=== PATIENT | female | born 2000 ===

== ENCOUNTER 2025-03-02 15:54 | Outpatient (AMB) | payer OTHER, SELFPAY ==
--- OUTSIDE RECORDS SUMMARY | 2025-03-02 15:57 | XMS_ITS | Clinical Summary ---
Author Organization [employer] ([facility] [employer] [facility] [employer]) Address [address] [place] [address] Care Team Providers Care Lead Person Name Role Phone Provider, Out Of Town Primary Care Provider U edwardailnatalie Source Comments PROHIBITION ON REDISCLOSURE: In the event these records contain information protected by 42 CFR Part 2, (i.e., would identify the patient as a substance abuser and was obtained by a federally assisted substance abuse program to diagnose, refer for treatment, or treat the patient for substance abuse), please be advised of the following: This information has been disclosed to you from records protected by Federal confidentiality rules (42 CFR part 2). The Federal rules prohibit you from making any further disclosure of this information unless further disclosure is expressly permitted by the written consent of the person to whom it pertains or as otherwise permitted by 42 CFR part 2. A general authorization for the release of medical or other information is NOT sufficient for this purpose. The Federal rules restrict any use of this information to criminally investigate or prosecute any alcohol or drug abuse patient. [facility] [employer]) Allergies Active Allergy Reactions Criticality Noted Date Comments Shellfish Derived 10/14/2023 Medications * PLEASE NOTE: Medications may not be up to date as of this document. Always verify current medications with the patient. No known medications Active Problems Problem Noted Date Diagnosed Date Chest pain 09/24/2023 Social History Tobacco Use Types Packs/Day Years Used Date Smoking Tobacco: Never Assessed Comments No Sex and Gender Information Value Date Recorded Sex Assigned at Not on file Legal Sex Female 4:13 PM EST Gender Identity Not on file Sexual Orientation Not on file Last Filed Vital Signs Vital Sign Reading Time Taken Comments Blood Pressure 117/79 10/14/2023 1:59 PM EDT Pulse 85 10/14/2023 1:59 PM EDT Temperature - - Respiratory Rate - - Oxygen Saturation - - Inhaled Oxygen Concentration - - Weight 74.4 kg (164 lb) 10/14/2023 1:59 PM EDT Height - - Body Mass Index - - Plan of Treatment Health Maintenance Due Date Last Done Comments CHLAMYDIA SCREENING 2000 DEPRESSION SCREENING & SURVEILLANCE 2012 HEPATITIS C SCREENING 2018 CERVICAL CANCER SCREENING & SURVEILLANCE 2021 COVID-19 VACCINE (2023-2 5 season) 2024 INFLUENZA VACCINE 02/24/2025 06/01/2020, , 09/20/2018, Additional history exists Insurance [employer] Care Teams Lead Person Relationship Specialty Start Date End Date [facility] [id number] PCP - General Group provider 09/24/23 Additional Source Comments PROHIBITION ON REDISCLOSURE: In the event these records contain information protected by 42 CFR Part 2, (i.e., would identify the patient as a substance abuser and was obtained by a federally assisted substance abuse program to diagnose, refer for treatment, or treat the patient for substance abuse), please be advised of the following: This information has been disclosed to you from records protected by Federal confidentiality rules (42 CFR part 2). The Federal rules prohibit you from making any further disclosure of this information unless further disclosure is expressly permitted by the written consent of the person to whom it pertains or as otherwise permitted by 42 CFR part 2. A general authorization for the release of medical or other information is NOT sufficient for this purpose. The Federal rules restrict any use of this information to criminally investigate or prosecute any alcohol or drug abuse patient. [facility]
--- OUTSIDE RECORDS SUMMARY | 2025-03-02 15:57 | XMS_ITS | Clinical Summary ---
Author Organization [facility] Address [address] [place] [address] Care Team Providers Care Stevedoring Supervisor Name Role Phone Jose Finney Primary Care Provider [phone] Source Comments In the event that these patient records contain information protected by 42 CFRpart 2 (i.e., would identify the patient as a substance abuser and was obtainedby a federally assisted substance abuse program to diagnose, refer fortreatment or treat the patient for substance abuse), please be advised of thefollowing: This information has been disclosed to you from records protected by Federalconfidentiality rules (42 CFR part 2). The Federal rules prohibit you frommaking any further disclosure of this information unless further disclosure isexpressly permitted by the written consent of the person to whom it pertains oras otherwise permitted by 42 CFR part 2. A general authorization for therelea se of medical or other information is NOT sufficient for this purpose.The Federal rules restrict any use of the information to criminally investigateor prosecute any alcohol or drug abuse patient. expressly permitted by the written consent of the person to whom it pertains or as otherwise permitted by 42 CFR part 2. A general authorization for the release of medical or other information is NOT sufficient for this purpose. The Federal rules restrict any use of the information to criminally investigate or prosecute any alcohol or drug abuse patient.[facility] Allergies Active Allergy Reactions Criticality Noted Date Comments Shellfish Containing Products 2022 Medications oxyCODONE (ROXICODONE) 5 MG immediate release tablet 08/25/2023 Acti ve ibuprofen (MOTRIN) 800 MG tablet Take by mouth. 04/11/2023 Active Social History Tobacco Use Types Packs/Day Years Used Date Smoking Tobacco: Never Tobacco Cessation:Counseling Given: Not Answered Alcohol Use Standard Drinks/Week Comments Never 0 (1 standard drink = 0.6 oz pur e alcohol) Substance Use Answer Date Recorded In the past year, how often have you used prescription drugs for non-medical reasons? Not on file 06/01/2024 In the past year, how often have you used illega l drugs? Not on file 06/01/2024 In the past year, have you u sed any substance for non-medical reasons? No 06/01/2024 Comments No Sex and Gender Information Value Date Recorded Sex Assigned at Female 07/01/2023 4:49 AM EST Legal Sex Female 6:03 PM EDT Gender Identity Female 07/01/2023 4:49 AM EST Sexual Orientation Straight 07/01/2023 4: 49 AM EST Last Filed Vital Signs Vital Sign Reading Time Taken Comments Blood Pressure 102/62 05/29/2024 11:35 AM EST Pulse 68 05/29/2024 11:35 AM EST Temperature 36.7 C (98 F) 05/29/2024 10:55 AM EST Respiratory Rate 18 05/29/2024 11:35 AM EST Oxygen Saturation 95% 05/29/2024 11:35 AM EST Inhaled Oxygen Concentration - - Weight 73.9 kg (163 lb) 05/29/2024 10:55 AM EST Height 154.9 cm (5' 1 ) 09/30/2023 1:40 PM EST Body Mass Index 30.8 09/30/2023 1:40 PM EST Plan of Treatment Health Maintenance Due Date Last Done Comments Chlamydia Screening 11/03/2015 Gonorrhea Screening 11/03/2015 Pap Smear with Reflex HPV (21-29) 2021 COVID-19 Vaccine ( season) 2024 04/11/2021, 03/20/2021 Influenza Vaccine (#1) 2025 , 05/28/2023, 06/01/2020, Additional history exists DTaP/Tdap/Td Vaccines (4 - Td or Tdap) 01/13/2029 01/13/2019, 04/12/2012, 03/19/2001 Pneumococcal Vaccine 0-49 Aged Out 03/19/2001 No longer eligible based on patient's age to complete this topic HPV Vaccines Completed 02/16/2020, 09/25, 08/17/2019, Additional history exists Hepatitis C Screen Completed 04/15/2024 Insurance [facility] Care Teams Stevedoring Supervisor Relationship Specialty Start Date End Date Jose Finney [address] [place] [address] PCP - General 04/02/23
--- OUTSIDE RECORDS SUMMARY | 2025-03-02 15:57 | XMS_ITS | Encounter Summary ---
Author Organization [facility] Address [address] [place] [address] Care Team Providers Care Ring Sorter Name Role Phone Joshua Lauren MD Primary Care Provider + None Primary Care Provider Unavailabl e Kim Harmon MD Primary Care Provider Jey Daniel MD Primary Care Prov ider Gabi Funez MD Primary Care Provider Encounter Details Date Type Department Care Team (Late st Contact Info) Description 10/28/2001 Orders Only On File [address] [place] [address] Social History Tobacco Use Types Packs/Day Years Used Date Smoking Tobacco: Never Assessed Comments Unknown Sex and Gender Information Value Date Recorded Sex Assigned at Female 09/06/2020 5:00 PM EST Legal Sex Female 11:27 AM EST Gender Identity Female 09/06/2020 5:00 PM EST Sexual Orientation Straight 12/03/2020 12 :06 PM EDT documented as of this encounter Procedure Notes * PROVIDER, ON-FILE - 10/28/2001 2:21 PM ESTAssociated Order(s): HEMATOCRIT Patient: ROQUE HERRERA [id number] [facility] ([facility]) Hematology-Historical Backload: Final 10/28/2001 14:21 Acc# [id number] Acct# HEMATOCRIT Reference HEMATOCRIT 36.0 % [32.0-42.0] SPUN documented in this encounter Plan of Treatment Not on file documented as of this encounter Procedures Procedure Name Priority Date/Time Associated Diagnosis Comments HEMATOCRIT 10/28/2001 2:21 PM EST documented in this encounter Results * HEMATOCRIT (10/28/2001 2:21 PM EST) Narrative Transcriptions PROVIDER, ON-FILE - 10/28/2001 2:21 PM EST Patient: FROY KYMBERLY JAHAIRAGERARDO [id number] [facility] ([facility]) Hematology-Historical Backload: Final 10/28/2001 14:21Acc# [id number] Acct# HEMATOCRIT Reference HEMATOCRIT 36.0 % [32.0-42.0] SPUN us On-File Provider LAB BLOOD ORDERABLES Final Resu lt documented in this encounter Visit Diagnoses Not on filedocumented in this encounter Additional Health Concerns Infection Onset Date Last Indicated Resolved Time Suspected COVID-19 08/07/2022 08/07/2022 3 9:36 PM EST Suspected COVID-19 08/19/2022 08/19/2022 3 11:22 AM EST COVID-19 08/19/2022 08/19/2022 09/08/2022 1:32 AM EST documented as of this encounter Care Teams Ring Sorter Relationship Specialty [place] [address] [facility] [address] [place] [address] PCP - General 06/28/12 05/09/22 None PCP - General 08/07/22 10/19/22 Kim Harmon MD PCP - General Pediatrics 10/20/22 07/23/23 Jey Daniel MD [address] [place] [id number] PCP - General Pediatrics 07/24/23 04/20/24 Gabi Funez MD [address] [place] [id number] PCP - General Internal Medicine 04/21/24 documented as of this encounter
--- NOTE | 2025-03-02 15:59 | AM.OFFWIN_ITS ---
Intake Vital Signs 03/02/25 16:03 Height 5 ft 1 in Weight 162 lb BMI 30.6 BP 94/54 L Blood Pressure Location Lt brachial Position Sitting Pulse 75 Pulse Source Pulse Oximeter Temp 97.9 F Temp Source Oral Pulse Oximetry (%) 97 Oxygen Delivery Method Room Air Intake Visit Reasons: Bilateral Eye/ear pain Intake Note: pt presents with bilateral eye pain, bilateral ear pain, LT eye blurry vision headaches, dizziness this morning when waking up this morning Allergies No Known Allergies Allergy (Verified 03/02/25 16:03) Do you need a note to return to daycare/school/sports/work: Yes HPI HPI Comments History of Present Illness Details 24 y/o Female patient who presents to [facility] walk in clinic with c/o Dry/itching eyes, Headaches, and B/L Ear Pressure and pain. She does have h/o Seasonal allergies associated with dry red eyes. She has tried in the past Allergra and Zrytec with minimal relief. Recently seen at [facility] in [place] (2 weeks ago) and was told to f/u with ENT and Securities Underwriter. She is having trouble securing PCP. She does suffer from Migraine headaches and uses Topiramate daily. She is new to [place] - she is in and constantly moving state to state. [facility] Medical History (Updated 03/02/25 @ 16:59 by Angelica Milton NP) Dry eyes, bilateral Allergic rhinitis Review of Systems Const All systems reviewed & are unremarkable except as noted in HPI and below Physical Exam Vital Signs: Last Vital Signs Temp 97.9 F 03/02/25 16:03 Pulse 75 03/02/25 16:03 BP 94/54 L 03/02/25 16:03 Pulse Ox 97 03/02/25 16:03 Oxygen Delivery Method Room Air 03/02/25 16:03 BMI result Body Mass Index 30.6 Const General: no acute distress Nutritional Appearance: overweight Orientation/consciousness: patient oriented x3 HEENT Head: Yes normocephalic Ears: external ears normal and TM abnormal bulging bilateral and with fluid behind the TM bilateral; not perforated and not retracted General nose exam: Abnormal mucous membranes and turbinates present boggy and erythematous and Nasal discharge present Face and sinus: Yes sinuses nontender Mouth: moist mucous membranes Throat: Yes uvula midline, Yes abnormal tonsil (Large tonsils), No peritonsillar mass and Yes postnasal drainage Eyes Periorbital: periorbital findings normal Eyelids: Yes eyelids normal Pupils: Equal, round and reactive pupils present EOM: EOMs intact bilaterally Resp Effort & Inspection: normal respiratory effort Auscultation: clear to auscultation bilaterally Cardio Heart sounds: S1 normal heart sound present and S2 normal heart sound present Neuro General: patient oriented x3 Cranial nerves: Yes Equal, round and reactive pupils present Assessment & Plan Assessment & Plan (1) Allergic rhinitis: Code(s): J30.9 - Allergic rhinitis, unspecified Qualifiers: Allergic rhinitis trigger: pollen Allergic rhinitis seasonality: seasonal Qualified Code(s): J30.1 - Allergic rhinitis due to pollen Plan: Ordered Claritin BID Flonase nasal Lannon BID Saline Nasal rinse. Needs to schedule appointment with ENT. (2) Dry eyes, bilateral: Code(s): H04.123 - Dry eye syndrome of bilateral lacrimal glands Plan: Ordered Zaditor for dry eyes. Need to schedule an appointment with Securities Underwriter. Medications: New loratadine (Claritin) 10 mg PO DAILY 30 tabs 0RF J30.1 - Allergic rhinitis due to pollen fluticasone propionate 50 mcg/actuation (Flonase Allergy Relief) administer into each nostril 2 sprays intranasal BID 16 grams 1RF J30.1 - Allergic rhinitis due to pollen ketotifen fumarate 0.025%(0.035%) (Zaditor) 1 drp ophthalmic (eye) Q8H PRN 5 mL 1RF allergy symptoms H04.123 - Dry eye syndrome of bilateral lacrimal glands Coding Level of Care Code New Pt Level 4 (40414) Diagnoses Seasonal allergic rhinitis due to pollen J30.1 Allergic rhinitis trigger: pollen Allergic rhinitis seasonality: seasonal Dry eyes, bilateral H04.123 Time Spent (min) 20
[2025-03-02 16:03] VITALS: BP 94/54; PULSE 75; TEMP 36.6; O2SAT 97; BMI 30.6
== END 2025-03-02 16:56 | disposition home or self-care (01) ==
PROVIDERS: Visit Provider Nurse Practitioner Family
DX: J30.1 Allergic rhinitis due to pollen (principal); H04.123 Dry eye syndrome of bilateral lacrimal glands

== ENCOUNTER → 2025-03-02 15:54 | Outpatient (BNVA) | payer OTHER, SELFPAY | PROVIDERS: Visit Provider Nurse Practitioner Family | DX: J30.1 Allergic rhinitis due to pollen (principal); H04.123 Dry eye syndrome of bilateral lacrimal glands | CPT/HCPCS: 99202 ==